=== PATIENT | female | born 1990 | race African-American/Black ===

== ENCOUNTER 2017-02-16 12:20 | Outpatient (CLI) | payer MEDICAID ==
[~2017-02-16] VITALS: Ht 154.9 cm; Wt 77.7 kg
[2017-02-16 12:40] VITALS: BP 109/67
== END 2017-02-16 14:15 | disposition home or self-care (01) ==
LOC: LDOP 12:20
PROVIDERS: ATTEND Student in an Organized Health Care Education/Training Program
DX: O36.8120 Decreased fetal movements, second trimester, not applicable or unspecified (principal); Z3A.25 25 weeks gestation of pregnancy
CPT/HCPCS: 59025; 81003; 87086; 99211; G0463

== ENCOUNTER 2020-09-15 05:07 | Emergency (ER) | payer MEDICAID ==
[~2020-09-15] VITALS: Ht 154.9 cm; Wt 80.6 kg
[2020-09-15 05:08] VITALS: BP 143/86
[2020-09-15] MEDS ORDERED: ONDANSETRON ODT 4 MG ONE (05:37)
[2020-09-15] MEDS ORDERED: HYDROcodone/APAP 5/325 TABLET ONE (05:38)
[2020-09-15] MEDS ORDERED: HYDROcodone/APAP 5/325 TABLET PO ONE (06:00)
[2020-09-15] MEDS ORDERED: ONDANSETRON ODT 4 MG PO ONE (06:00)
== END 2020-09-15 06:08 | disposition home or self-care (01) ==
LOC: ED 05:22
DX: K02.9 Dental caries, unspecified (principal); F17.210 Nicotine dependence, cigarettes, uncomplicated
CPT/HCPCS: 99283; Q0162